=== PATIENT | female | born 1965 | race Caucasian/White ===

== ENCOUNTER → 2020-02-06 16:43 | Outpatient (BNVA) | payer OTHER, SELFPAY | PROVIDERS: Family Provider Nurse Practitioner Family; PCP Nurse Practitioner Family; Visit Provider Nurse Practitioner Family | DX: Z11.59 Encounter for screening for other viral diseases (principal); J44.9 Chronic obstructive pulmonary disease, unspecified | CPT/HCPCS: 87635 ==

== ENCOUNTER → 2021-07-24 14:47 | Outpatient (BNVA) | payer MEDICAID, SELFPAY | PROVIDERS: Family Provider Nurse Practitioner Family; PCP Nurse Practitioner Family; Visit Provider Nurse Practitioner Family | DX: J02.9 Acute pharyngitis, unspecified (principal) | CPT/HCPCS: 87081; 87804; 87880 ==

== ENCOUNTER → 2021-11-05 17:42 | Outpatient (BNVA) | payer MEDICAID, SELFPAY | PROVIDERS: Family Provider Nurse Practitioner Family; PCP Nurse Practitioner Family; Visit Provider Emergency Medicine | DX: N64.4 Mastodynia (principal); R07.89 Other chest pain; Z98.890 Other specified postprocedural states; Z85.820 Personal history of malignant melanoma of skin | CPT/HCPCS: 71046 ==

== ENCOUNTER → 2022-03-20 17:22 | Outpatient (BNVA) | payer MEDICAID, SELFPAY | PROVIDERS: Family Provider Nurse Practitioner Family; PCP Family Medicine; Visit Provider Emergency Medicine | DX: R09.89 Other specified symptoms and signs involving the circulatory and respiratory systems (principal) | CPT/HCPCS: 71046 ==

== ENCOUNTER → 2022-03-26 09:33 | Outpatient (BNVA) | payer MEDICAID, SELFPAY | PROVIDERS: Family Provider Nurse Practitioner Family; PCP Family Medicine; Visit Provider Family Medicine | DX: J44.9 Chronic obstructive pulmonary disease, unspecified (principal); R59.0 Localized enlarged lymph nodes; G47.10 Hypersomnia, unspecified; F41.1 Generalized anxiety disorder; H92.09 Otalgia, unspecified ear; Z13.1 Encounter for screening for diabetes mellitus; Z13.220 Encounter for screening for lipoid disorders; Z13.6 Encounter for screening for cardiovascular disorders; J41.0 Simple chronic bronchitis; N95.2 Postmenopausal atrophic vaginitis; Z72.0 Tobacco use; F33.1 Major depressive disorder, recurrent, moderate; H92.03 Otalgia, bilateral; Z12.31 Encounter for screening mammogram for malignant neoplasm of breast; Z76.89 Persons encountering health services in other specified circumstances | CPT/HCPCS: 80053; 80061 ==

== ENCOUNTER 2022-04-24 11:46 | Outpatient (CLI) | payer MEDICAID, SELFPAY ==
--- NOTE | 2022-04-24 11:53 | MM_ITS ---
WS: [id number] BILATERAL SCREENING DIGITAL TOMOSYNTHESIS MAMMOGRAM WITH CAD HISTORY: Screening exam. COMPARISON: 08/29/2020 and 05/25/2018 Bilateral CC and MLO views with tomosynthesis and synthetic mammography submitted. Computer aided det ection analyzed. Breast composition: There are scattered areas of fibroglandular density. No suspicious masses, microc alcifications or architectural distortion. Benign calcification 12:00 posterior RIGHT breast. MM/[place] [id number] IMPRESSION: BI-RADS: 2-Benign FOLLOW UP: 1 Year Follow-up
== END 2022-04-24 11:47 | disposition home or self-care (01) ==
LOC: RAD 11:47
PROVIDERS: PCP Family Medicine; Visit Provider Family Medicine
DX: Z12.31 Encounter for screening mammogram for malignant neoplasm of breast (principal)
CPT/HCPCS: 77063; 77067

== ENCOUNTER → 2022-05-11 11:13 | Outpatient (BNVA) | payer MEDICAID, SELFPAY | PROVIDERS: PCP Family Medicine; Visit Provider Nurse Practitioner Family | DX: R68.89 Other general symptoms and signs (principal); J01.90 Acute sinusitis, unspecified; B96.89 Other specified bacterial agents as the cause of diseases classified elsewhere; J40 Bronchitis, not specified as acute or chronic; F19.982 Other psychoactive substance use, unspecified with psychoactive substance-induced sleep disorder | CPT/HCPCS: 87400; 87426 ==

== ENCOUNTER → 2022-06-15 14:23 | Outpatient (BNVA) | payer MEDICAID, SELFPAY | PROVIDERS: PCP Family Medicine; Visit Provider Internal Medicine Pulmonary Disease | DX: J41.0 Simple chronic bronchitis (principal); Z72.0 Tobacco use; Z12.2 Encounter for screening for malignant neoplasm of respiratory organs; Z71.6 Tobacco abuse counseling; F17.210 Nicotine dependence, cigarettes, uncomplicated; R06.02 Shortness of breath | CPT/HCPCS: 36415; 82785; 85025; 86003 ==

== ENCOUNTER 2022-06-29 18:34 | Emergency (ER) | payer MEDICAID, SELFPAY ==
[2022-06-29 18:53] VITALS: BP 108/70; PULSE 85; RESP 14; TEMP 36.3; O2SAT 97
--- NOTE | 2022-06-29 20:11 | ED_ITS ---
HPI - Eye Problem General: Chief complaint: Eye Problems Stated complaint: Bacterial Conjunctivitis Time Seen by Provider: 06/29/22 19:51 History of Present Illness: 56-year-old female comes in today for complaints of drainage, pain and discomfort and eye infection for the last 7 to 10 days. Patient was seen at primary care and was diagnosed with conjunctivitis and preseptal cellulitis. Patient was placed on antibiotic eyedrops and oral antibiotics. Patient was recommended to monitor site for worsening symptoms and go to the ER for further evaluation for those symptoms. Patient became concerned and came to the emergency room due to pain with movement of the eyeball. Patient appears nontoxic. Patient has some purulent drainage to the medial aspect of the conjunctiva at the lacrimal duct area. Patient has a history of COPD, general anxiety disorder, depression and history of nicotine dependence. Associated symptoms: Denies neck pain or vomiting Review of Systems Eyes: Reports: eye discomfort, eye discharge and eye redness ENMT: Denies: mouth pain Card: Denies: chest pain Resp: Denies: dyspnea GI: Denies: vomiting Musc: Denies: neck pain Skin/Breast: Denies: rash PFSH ED PFSH: Medical History Depression Diverticula of colon Melanoma Rectocele Social History Smoking and tobacco status: current every day smoker cigarettes Packs smoked per day: 1 Years cigarettes smoked: 37 Alcohol intake: never Physical Exam Const: COMMON NORMALS: alert HENMT: COMMON NORMALS: normocephalic HEAD & SCALP: normocephalic Eye: COMMON NORMALS: Equal, round and reactive pupils present CONJUNCTIVA: Yes conjunctival abnormal positive left conjunctival injection and discharge CORNEA: Yes corneas normal PUPIL: Yes Equal, round and reactive pupils present EOM: No EOM abnormal Neck/C-Spine: COMMON NORMALS: no meningeal signs Resp: COMMON NORMALS: normal respiratory effort Cardio: COMMON NORMALS: regular rate RATE: regular rate GI: COMMON NORMALS: Soft to palpation and non-tender PALPATION: Yes Soft to palpation Extremity: COMMON NORMALS: normal to inspection Neuro: SENSORIUM/ORIENTATION: Yes alert MENINGEAL SIGNS: Yes no meningeal signs Skin: COMMON NORMALS: turgor normal GENERAL SKIN EXAM: turgor normal Course Vital Signs: Vital signs: Vital Signs Temperature 97.3 F L 06/29/22 18:53 Pulse Rate 85 06/29/22 18:53 Respiratory Rate 14 06/29/22 18:53 Blood Pressure 108/70 06/29/22 18:53 Pulse Oximetry 97 06/29/22 18:53 Oxygen Delivery Me thod 06/29/22 18:53 MDM - Eye Problem Medical Decision Making Patient comes in today due to discomfort with eye movement. Patient was diagnosed with preseptal cellulitis and conjunctivitis at primary care office. On exam patient does have some drainage from the lacrimal duct area of the left eye. No significant redness or swelling is noted in the periorbital region of the eye. Patient reports pain with movement of the eye. No foreign body is noted within the eye. Vital signs are normal. Differential diagnosis includes but not limited to periorbital abscess, preseptal cellulitis, conjunctivitis, stye, lacrimal duct infection. CBC and CMP were unremarkable. CRP was unremarkable. CT of the orbits noted no sign of significant periorbital infection or preseptal cellulitis. It was noted patient had some sinusitis. Suspect the drainage is probably secondary to a rhinosinusitis and mild conjunctivitis. Recommend continuing antibiotics as directed by primary care. Recommend follow-up with primary care or eye animal care taker for further concerns. No signs of serious illness was noted. Lab Data 06/29/22 20:20 06/29/22 20:[address] 06/29/22 20:11 IMPRESSION: 1. Negative for intraorbital inflammatory process. 2. Paranasal sinus mucosal thickening. Laboratory Results WBC 6.7 10^3/uL (4.0-10.0) 06/29/22 20:20 RBC 5.06 10^6/uL (4.1-5.3) 06/29/22 20:20 Hgb 15.0 g/dL (11.5-15.3) 06/29/22 20:20 Hct 47.1 % (37.0-47.0) H 06/29/22 20:20 MCV 93.1 fl (81-99) 06/29/22 20:20 MCH 29.6 pg (28.0-34.0) 06/29/22 20:20 MCHC 31.8 g/dL (30.0-36.0) 06/29/22 20:20 RDW 13.5 % (12.1-15.1) 06/29/22 20:20 Plt Count 385 10^3/cmm (130-400) 06/29/22 20:20 MPV 9.3 fL (7.4-10.4) 06/29/22 20:20 Neut % (Auto) 42.7 % 06/29/22 20:20 Lymph % (Auto) 43.4 % 06/29/22 20:20 Knott % (Auto) 8.6 % 06/29/22 20:20 Eos % (Auto) 3.4 % 06/29/22 20:20 Baso % (Auto) 1.8 % 06/29/22 20:20 Neut # (Auto) 2.87 10^3/uL (1.8-7.7) 06/29/22 20:20 Lymph # (Auto) 2.9 10^3/uL (0.8-4.8) 06/29/22 20:20 Knott # (Auto) 0.6 10^3/uL (0.2-0.9) 06/29/22 20:20 Eos # (Auto) 0.2 10^3/uL (0.0-0.8) 06/29/22 20:20 Baso # (Auto) 0.1 10^3/uL (0.0-0.1) 06/29/22 20:20 Nucleated RBC % (auto) 0 % 06/29/22 20:20 Nucleated RBCs # 0.0 /100WBC 06/29/22 20:20 ESR 7 mm/hr (0-15) 06/29/22 20:20 Sodium 144 mmol/L (136-145) 06/29/22 20:20 Potassium 4.2 mmol/L (3.5-5.1) 06/29/22 20:20 Chloride 108 mmol/L (98-107) H 06/29/22 20:20 Carbon Dioxide 27 mmol/L (22-29) 06/29/22 20:20 Anion Gap 13.2 (5-19) 06/29/22 20:20 BUN 10 mg/dL (6-20) 06/29/22 20:20 Creatinine 0.6 mg/dL (0.5-0.9) 06/29/22 20:20 GFR Calculation 103.8 mL/min (90-130) 06/29/22 20:20 Glucose 98 mg/dL (65-115) 06/29/22 20:20 Calculated Osmolality 297 mOsm/kg (285-295) H 06/29/22 20:20 Calcium 9.2 mg/dL (8.5-10.5) 06/29/22 20:20 Total Bilirubin 0.2 mg/dL (0.15-1.2) 06/29/22 20:20 AST 14 U/L (0-32) 06/29/22 20:20 ALT 13 U/L (0-33) 06/29/22 20:20 Alkaline Phosphatase 103 U/L (35-105) 06/29/22 20:20 C-Reactive Protein 6.3 mg/L (0.0-4.9) H 06/29/22 20:20 Total Protein 7.1 g/dL (6.6-8.7) 06/29/22 20:20 Albumin 4.2 g/dL (3.5-5.2) 06/29/22 20:20 Globulin 2.9 g/dL (1.3-4.6) 06/29/22 20:20 Discharge Plan Discharge Patient Disposition: Home Clinical Impression: Acute rhinosinusitis Conjunctivitis Qualifiers: Conjunctivitis type: acute Acute conjunctivitis type: unspecified Laterality: left Qualified Code(s): H10.32 - Unspecified acute conjunctivitis, left eye Condition: Stable Prescriptions: No Action albuterol sulfate [ProAir HFA] 90 mcg/actuation HFA aerosol inhaler 2 puff INHALATION Q6H PRN (Reason: shortness of breath or wheezing) Qty: 8.5 0RF sulfamethoxazole-trimethoprim [Bactrim DS] 800-160 mg tablet 1 tab PO BID 7 Days Qty: 14 0RF neomycin-polymyxin B-dexameth [Maxitrol] 3.5mg/mL-10,000 unit/mL-0.1 % drops,suspension 2 drp ophthalmic (eye) Q4H 7 Days Qty: 5 0RF Combivent Respimat 20-100 mcg/actuation mist 1 puff inhalation 6XD Qty: 4 5RF Rx Instructions: 4-6 times daily as needed budesonide-formoterol [Symbicort] 160-4.5 mcg/actuation HFA aerosol inhaler 2 puff inhalation BID Qty: 10.2 5RF buspirone 7.5 mg tablet 7.5 mg PO BID 90 Days Qty: 180 1RF desvenlafaxine succinate 25 mg tablet extended release 24 hr 25 mg PO DAILY 30 Days Qty: 30 1RF Hold Instructions: Home Medication placed on hold at Doctor's office hydroxyzine HCl 25 mg tablet 25 mg PO .at bedtime PRN (Reason: insomnia) 30 Days Qty: 30 1RF fluticasone propionate 50 mcg/actuation spray,suspension See Rx Instructions .ROUTE .COMPLEX Qty: 16 1RF Dose Instruction: 1 SPRAY EACH NOSTRIL EVERY 12 HOURS Rx Instructions: 1 SPRAY EACH NOSTRIL EVERY 12 HOURS Discharge Orders: Discharge ED (Routine); Ordered 06/29/22 Ordered By: Andrew Whitley Referrals: Ria Hsu NP [Primary Care Provider] - Discharge Diet: Usual diet Discharge Activity: Increase activity as tolerated Patient Instructions: Conjunctivitis (ED) Activity Restrictions/Additional Instructions: Continue with antibiotics as directed. Drink plenty of water. Follow-up with primary care or eye animal care taker for further treatment. Return to ED for new concerns. Coding Level of Care Code ED Manager Product Support for Krupa Mireles
--- NOTE | 2022-06-29 20:11 | CTR_ITS ---
PROCEDURE INFORMATION: Exam: CT Orbits With Contrast Exam date and time: 06/29/2022 8:37 PM Age: 56 years old Clinical indication: Mass, lump, or swelling; Other: Orbits; Patient HX: Bilateral periorbital swelling and redness. ; Additional info: Preseptal cellulitis R/O periorbital cellulitis TECHNIQUE: Imaging protocol: Computed tomography of the orbits with contrast. Radiation optimization: All CT scans at this facility use at least one of these dose optimization techniques: automated exposure control; mA and/or kV adjustment per patient size (includes targeted exams where dose is matched to clinical indication); or iterative reconstruction. Contrast material: OMNI 350; Contrast volume: 100 ml; Contrast route: INTRAVENOUS (IV); REPORTING DATA: Count of CT and Cardiac NM exams in prior 12 months: This patient has received 0 known CTs and 0 known cardiac nuclear medicine studies in the 12 months prior to the current study. COMPARISON: No relevant prior studies available. RADIATION DOSE METRICS: Total DLP (mGy-cm): 319.78 FINDINGS: Paranasal sinuses: Paranasal sinus mucosal thickening. Orbital cavities: Orbits are normal. Globes are unremarkable. Bones/joints: No acute fracture. Soft tissues: No significant facial soft tissue swelling. CT/CT orbit BI w con [id number] IMPRESSION: 1. Negative for intraorbital inflammatory process. 2. Paranasal sinus mucosal thickening.
[2022-06-29 20:30] LABS: Basophils # 0.1 10^3/uL (0.0-0.1); Basophils % 1.8 %; Eosinophils # 0.2 10^3/uL (0.0-0.8); Eosinophils % 3.4 %; Hematocrit 47.1 % (37.0-47.0); Lymphocytes # 2.9 10^3/uL (0.8-4.8); Lymphocytes % 43.4 %; Mean Corpuscular HGB Conc 31.8 g/dL (30.0-36.0); Mean Corpuscular Hemoglobin 29.6 pg (28.0-34.0); Mean Corpuscular Volume 93.1 fl (81-99); Mean Platelet Volume 9.3 fL (7.4-10.4); Monocytes # 0.6 10^3/uL (0.2-0.9); Monocytes % 8.6 %; Neutrophils # 2.87 10^3/uL (1.8-7.7); Neutrophils % 42.7 %; Nucleated Red Blood Cells % 0 %; Platelet Count 385 10^3/cmm (130-400); Red Blood Count 5.06 10^6/uL (4.1-5.3); Red Cell Distribution Width 13.5 % (12.1-15.1); White Blood Count 6.7 10^3/uL (4.0-10.0)
[2022-06-29 20:35] LABS: Erythrocyte Sedimentation Rate 7 mm/hr (0-15)
[2022-06-29] MEDS: iohexol 350 mg/mL 500 mL Btl (per mL) IV (20:40)
[2022-06-29 20:46] LABS: Alanine Aminotransferase 13 U/L (0-33); Albumin Level 4.2 g/dL (3.5-5.2); Alkaline Phosphatase 103 U/L (35-105); Anion Gap 13.2 (5-19); Aspartate Amino Transferase 14 U/L (0-32); Blood Urea Nitrogen 10 mg/dL (6-20); C Reactive Protein 6.3 mg/L (0.0-4.9); Calcium 9.2 mg/dL (8.5-10.5); Carbon Dioxide 27 mmol/L (22-29); Chloride 108 mmol/L (98-107); Globulin 2.9 g/dL (1.3-4.6); Glomerular Filtration Rate 103.8 mL/min (90-130); Glucose 98 mg/dL (65-115); Osmolality Calculated 297 mOsm/kg (285-295); Potassium 4.2 mmol/L (3.5-5.1); Sodium 144 mmol/L (136-145); Total Bilirubin 0.2 mg/dL (0.15-1.2); Total Protein 7.1 g/dL (6.6-8.7)
[2022-06-29] MEDS: HYDROcodone-acetaminophen 7.5-325 mg Tablet 1 TAB PO (20:49)
[2022-06-29 21:45] VITALS: PULSE 88; RESP 16; O2SAT 99
== END 2022-06-29 21:46 | disposition home or self-care (01) ==
PROVIDERS: Emergency Provider Nurse Practitioner Family; PCP Nurse Practitioner Family
DX: H10.32 Unspecified acute conjunctivitis, left eye (principal); J01.90 Acute sinusitis, unspecified; J44.9 Chronic obstructive pulmonary disease, unspecified; F17.210 Nicotine dependence, cigarettes, uncomplicated
CPT/HCPCS: 36415; 70481; 80053; 85025; 85651; 86140; 99284; Q9967

== ENCOUNTER 2022-07-01 13:00 | Outpatient (CLI) | payer MEDICAID, SELFPAY | END 2022-07-01 13:01 | disposition home or self-care (01) | LOC: SLEEP 07-06 11:04 | PROVIDERS: PCP Nurse Practitioner Family; Visit Provider Family Medicine | DX: G47.10 Hypersomnia, unspecified (principal) | CPT/HCPCS: G0399 ==

== ENCOUNTER → 2022-12-25 14:52 | Outpatient (BNVA) | payer MEDICAID, SELFPAY | PROVIDERS: PCP Family Medicine; Visit Provider Emergency Medicine | DX: M23.52 Chronic instability of knee, left knee (principal) | CPT/HCPCS: 73562 ==

== ENCOUNTER 2023-03-29 20:00 | Outpatient (CLI) | payer BC, MEDICAID, SELFPAY | END 2023-03-29 20:01 | disposition home or self-care (01) | LOC: SLEEP 03-30 04:56 | PROVIDERS: PCP Nurse Practitioner Family; Visit Provider Family Medicine | DX: G47.10 Hypersomnia, unspecified (principal); R06.83 Snoring | CPT/HCPCS: 95810 ==

== ENCOUNTER → 2023-07-28 12:07 | Outpatient (BNVA) | payer BC, MEDICAID, SELFPAY | PROVIDERS: PCP Nurse Practitioner Family; Visit Provider Emergency Medicine | DX: J41.0 Simple chronic bronchitis (principal); J44.1 Chronic obstructive pulmonary disease with (acute) exacerbation; R04.2 Hemoptysis; F17.200 Nicotine dependence, unspecified, uncomplicated | CPT/HCPCS: 71046 ==

== ENCOUNTER → 2024-11-22 11:35 | Outpatient (BNVA) | payer MEDICAID, SELFPAY | PROVIDERS: PCP Family Medicine; Visit Provider Family Medicine | DX: Z13.1 Encounter for screening for diabetes mellitus (principal); Z13.6 Encounter for screening for cardiovascular disorders; Z13.220 Encounter for screening for lipoid disorders; M47.894 Other spondylosis, thoracic region | CPT/HCPCS: 71046; 80053; 80061; 85025 ==

== ENCOUNTER 2024-12-01 08:34 | Outpatient (CLI) | payer BC, SELFPAY ==
--- NOTE | 2024-12-01 08:40 | MM_ITS ---
WS: [id number] BILATERAL SCREENING DIGITAL TOMOSYNTHESIS MAMMOGRAM WITH CAD HISTORY: Z12.39 - Encounter for other screening for malignant neop... COMPARISON: 04/24/2022, 08/29/2020 Bilateral CC and MLO views with tomosynthesis and synthetic mammography submitted. Computer aided detection analyzed. Breast composition: The breasts are heterogeneously dense, which may obscure small masses. No suspicious masses, microcalcifications or architectural distortion. Benign calcification RIGHT breast. MM/MM scr BI tomosynthesis [id number] IMPRESSION: BI-RADS: 2 - Benign FOLLOW UP: 1 Year Follow-up
--- NOTE | 2024-12-01 09:15 | CT_ITS ---
WS: [id number] LDCT LUNG CANCER SCREENING HISTORY: Z12.2 - Encounter for screening for malignant neoplasm of... TECHNIQUE: Axial imaging performed from the apices to 1 cm below the costophrenic angles. Coronal and sagittal reformats are submitted with axial MIP series. All CT scans at [facility] use at least one of these dose optimization techniques: automated exposure control; mA and/or kV adjustment per patient size (includes targeted exams where dose is matched to clinical indication); or iterative reconstruction. DLP: 54.10 mGy.cm DIvol: Mean CTDIvol: 1.00 (mGy) COMPARISON: None available. Diagnostic quality: Satisfactory Lungs: Mild centrilobular emphysema. 2 mm noncalcified nodule RIGHT upper lobe, image 67 series 4. Subpleural nodule RIGHT upper lobe, image 152 series 4. Bilateral fissural nodules, greatest measures 5 mm on the RIGHT. Mild hazy attenuation and groundglass attenuation throughout both lungs. No mass or pulmonary nodule. No endobronchial lesions. Heart: Normal size heart with no pericardial effusion.. Other findings: Mild atherosclerosis aorta. Normal size pulmonary artery. No mediastinal or hilar adenopathy. Small hiatal hernia. No destructive bone lesions. CT/CT lung screening [id number] IMPRESSION: LUNG-RADS: 2-Benign Appearance or Behavior FOLLOW UP: 12 Month: Continue annual screening with LDCT OTHER FINDINGS (S MODIFIER): None.
== END 2024-12-01 08:35 | disposition home or self-care (01) ==
LOC: RAD 08:35
PROVIDERS: PCP Family Medicine; Visit Provider Family Medicine
DX: Z12.31 Encounter for screening mammogram for malignant neoplasm of breast (principal); Z12.2 Encounter for screening for malignant neoplasm of respiratory organs; F17.210 Nicotine dependence, cigarettes, uncomplicated; R92.333 Mammographic heterogeneous density, bilateral breasts; R92.1 Mammographic calcification found on diagnostic imaging of breast; J43.2 Centrilobular emphysema; R91.1 Solitary pulmonary nodule; K44.9 Diaphragmatic hernia without obstruction or gangrene
CPT/HCPCS: 71271; 77063; 77067

== ENCOUNTER 2024-12-26 10:30 | Outpatient (CLI) | payer BC, MEDICAID, SELFPAY | END 2024-12-26 10:31 | disposition home or self-care (01) | LOC: RT 10:31 | PROVIDERS: PCP Family Medicine; Visit Provider Family Medicine | DX: J44.9 Chronic obstructive pulmonary disease, unspecified (principal) | CPT/HCPCS: 94010; 94726; 94729 ==

== ENCOUNTER → 2024-12-29 14:01 | Outpatient (BNVA) | payer MEDICAID, SELFPAY | PROVIDERS: PCP Family Medicine; Visit Provider Internal Medicine | DX: J44.9 Chronic obstructive pulmonary disease, unspecified (principal) | CPT/HCPCS: 36415; 85025 ==

== ENCOUNTER 2025-01-18 14:43 | Outpatient (CLI) | payer MEDICAID, SELFPAY ==
--- NOTE | 2025-01-18 15:15 | CT_ITS ---
WS: [id number] CT CHEST HIGH RESOLUTION, NONCONTRAST. HISTORY: Interstitial lung disease. Technique: High-resolution chest CT is performed in inspiration, expiration, supine and prone positioning. All CT scans at [facility] use at least one of these dose optimization techniques: automated exposure control; mA and/or kV adjustment per patient size (includes targeted exams where dose is matched to clinical indication); or iterative reconstruction. DLP: 801.70 mGy COMPARISON: 12/01/2024 Findings: Hyperexpanded lungs with centrilobular emphysema. Hazy, groundglass attenuation throughout both lungs. No dominant or enlarging pulmonary nodule. Benign calcified granuloma at the LEFT lung base. Mild mosaic attenuation. There is no honeycombing or traction bronchiectasis. No lobar collapse. Tiny perifissural nodules are reidentified. During expiration there is decreased lung volume but a more prominent mosaic attenuation suggesting areas of air trapping. Normal size aorta. Heart is top normal size. No mediastinal or hilar adenopathy. There is a prominent LEFT axillary lymph node measuring 2.2 cm which may be reactive. Unchanged since 12/01/2024. Upper abdomen is negative. No adrenal gland mass. Gallbladder is still present. CT/CT chest w/o HI-Res(Pulm Only) Impression: 1. No pulmonary mass or nodule. 2. No honeycombing or bronchiectasis. 3. Diffuse hazy attenuation and groundglass opacification with areas of air tr apping. Consider asthma, bronchiolitis obliterans, hypersensitivity pneumonitis . 4. No mediastinal or hilar adenopathy. 5. Centrilobular emphysema.
== END 2025-01-18 14:44 | disposition home or self-care (01) ==
LOC: RAD 14:44
PROVIDERS: PCP Family Medicine; Visit Provider Family Medicine
DX: J96.10 Chronic respiratory failure, unspecified whether with hypoxia or hypercapnia (principal); J43.2 Centrilobular emphysema; J84.89 Other specified interstitial pulmonary diseases; J84.10 Pulmonary fibrosis, unspecified; R91.8 Other nonspecific abnormal finding of lung field; R59.0 Localized enlarged lymph nodes; J98.4 Other disorders of lung
CPT/HCPCS: 71250

== ENCOUNTER 2025-03-07 08:59 | Outpatient (CLI) | payer MEDICAID, SELFPAY ==
[2025-03-07 09:09] VITALS: O2SAT 93; O2SAT 98
== END 2025-03-07 09:00 | disposition home or self-care (01) ==
LOC: RT 09:00
PROVIDERS: Absent Provider Internal Medicine; PCP Family Medicine; Visit Provider Family Medicine
DX: R91.8 Other nonspecific abnormal finding of lung field (principal)
CPT/HCPCS: 94618; 94760